=== PATIENT | male | born 1975 | race American Indian/Alaskan Native ===

== ENCOUNTER 2018-09-01 14:45 | Emergency (ER) | payer MEDICARE ==
[2018-09-01 15:00] VITALS: BP 108/78
--- NOTE | 2018-09-01 15:26 | Emergency Department Report ---
ED Psych HPI - General Chief Complaint: Psych Stated Complaint: KO EVSATINDER Time Seen by Provider: 09/01/18 15:15 Source: patient, EMS Mode of arrival: Ambulatory Limitations: Other - History of Present Illness Initial Comments: Mr. Alvarez is a 43 yo male who presents via [facility] because he did not like his custodial. He dose admit to his family agreeing with a diagnosis of mental illness. However, he will not give me contact information for KIARRA who is his sister. He has been previously treated at [facility]. He has disorganized speech. Difficult to follow his speech pattern but cooperative. Denies desires to harm himself or others. "I'm okay. I have a place to stay with my brother when it's ready." Complaint: other (disorganized thought pattern) -: unknown Associated Psychiatric Symptoms: racing thoughts Quality: constant Associated Symptoms: denies other symptoms - Related Data Allergies Allergy/AdvReac Type Severity Reaction Status Date / Time No Known Allergies Allergy Unverified 09/01/18 14:46 ED Review of Systems ROS: Stated complaint: MH EVAL Other details as noted in HPI Comment: All other systems reviewed and negative Constitutional: denies: fever, malaise Respiratory: denies: cough ED Past Medical Hx - Past Medical History Previous Medical History?: No - Surgical History Past Surgical History?: No - Social History Smoking Status: Never Smoker Substance Use Type: None ED Physical Exam - General Limitations: No Limitations General appearance: alert, in no apparent distress - Head Head exam: Present: atraumatic, normocephalic - Eye Eye exam: Present: normal appearance - ENT ENT exam: Present: mucous membranes moist - Neck Neck exam: Present: normal inspection - Respiratory Respiratory exam: Present: normal lung sounds bilaterally. Absent: respiratory distress, wheezes, rales, rhonchi - Cardiovascular Cardiovascular Exam: Present: regular rate, normal rhythm, normal heart sounds. Absent: systolic murmur, diastolic murmur, rubs, gallop - GI/Abdominal GI/Abdominal exam: Present: soft, normal bowel sounds. Absent: distended, tenderness, guarding, rebound - Rectal Rectal exam: Present: deferred - Extremities Exam Extremities exam: Present: normal inspection - Back Exam Back exam: Present: normal inspection - Neurological Exam Neurological exam: Present: alert, oriented X3, normal gait - Psychiatric Psychiatric exam: Present: normal affect, other (racing, circular speech at times difficult to follow,) - Skin Skin exam: Present: warm, dry, intact, normal color. Absent: rash ED Course Vital Signs 09/01/18 15:00 Temperature 98.6 F Pulse Rate 87 Respiratory 18 Rate Blood Pressure 108/78 [Left] O2 Sat by Pulse 96 Oximetry ED Medical Decision Making - Medical Decision Making Mr. Alvarez presents from custodial with limited hx from EMS. Suspect chronic psychosis and intellectual disability. NO indication of acute psychiatric issue at this time. Mr. Alvarez informed me that he plans to go to his uncle home which is within walking distance from the hospital. I planned to discharge Mr. Alvarez. However, he left before appropriate discharge without written instuctions. I had no reason to hold him against his will. He was cooperative and pleasant. HE denied any thoughts of harm to himself or others. Critical care attestation.: If time is entered above; I have spent that time in minutes in the direct care of this critically ill patient, excluding procedure time. ED Disposition Clinical Impression: Mental and behavioral problem in adult Disposition: Z-07 ELOPED Is pt being admited?: No Does the pt Need Aspirin: No Condition: Stable
[2018-09-01 16:02] LABS: Alanine Aminotransferase 16 units/L (7-56); Albumin 4.2 g/dL (3.9-5); BUN/Creatinine Ratio 10; Blood Urea Nitrogen 9 mg/dL (9-20); Calcium 9.3 mg/dL (8.4-10.2); Hemolysis Index 5
[2018-09-01 16:03] LABS: Amphetamine Screen,Urine PRESUMPTIVE NEGATIVE; Benzodiazepines Screen,Urine PRESUMPTIVE NEGATIVE; Methadone Screen,Urine PRESUMPTIVE NEGATIVE; Opiate Screen,Urine PRESUMPTIVE NEGATIVE
[2018-09-01 16:04] LABS: Bilirubin,Urine NEG (Negative); Blood,Urine NEG (Negative); Color,Urine Yellow (Yellow); Mucus,Urine 1+ /HPF; Protein,Urine <15 mg/dL mg/dL (Negative); Urobilinogen,Urine < 2.0 mg/dL (<2.0)
[2018-09-01 16:04] LABS: Eosinophils % (Auto) 0.6 % (0.0-4.3); Hematocrit 38.7 % (35.5-45.6); Lymphocytes # (Auto) 0.9 K/mm3 (1.2-5.4); Lymphocytes % (Auto) 18.4 % (13.4-35.0); Mean Corpuscular HGB Conc 34 % (32-34); Mean Corpuscular Volume 85 fl (84-94); Monocytes # (Auto) 0.3 K/mm3 (0.0-0.8); Monocytes % (Auto) 5.9 % (0.0-7.3); Platelet Count 165 K/mm3 (140-440); Red Blood Count 4.54 M/mm3 (3.65-5.03); Red Cell Distribution Width 14.3 % (13.2-15.2)
[2018-09-01 16:11] LABS: Basophils % (Auto) 0.5 % (0.0-1.8)
[2018-09-01 16:25] LABS: Cannabinoid Screen,Urine PRESUMPTIVE POSITIVE; Cocaine Screen,Urine PRESUMPTIVE POSITIVE
== END 2018-09-01 15:40 | disposition left against medical advice (07) ==
LOC: ED 14:45
DX: F99 Mental disorder, not otherwise specified (principal); R47.89 Other speech disturbances
CPT/HCPCS: 36415; 80053; 80307; 81001; 85025; 99284; G0480; 80320